=== PATIENT | female | born 1980 | race Caucasian/White ===

== ENCOUNTER → 2016-11-11 | Day surgery (SDC) | payer OTHER ==
[~2016-11-11] VITALS: Ht 157.5 cm; Wt 48.9 kg
[~2016-11-11] MED LIST: CLARITIN10 MG PO; DELTASONE5 MG PO; HUMALOG100 UNIT/1 SUB-Q; IMURAN50 MG PO; LINZESS145 MCG PO; PLAQUENIL200 MG PO; PROTONIX40 MG PO; ST. JOHN'S WOR300 M1 PO; VITAMIN D-32000 UNI1 PO; ZANTAC (NON-FO150 MG PO
[2016-11-11 11:05] LABS: BASOPHIL % 0.9 %; EOSINOPHIL % 0.6 %; HEMATOCRIT 30.7 % (33.0-46.0); HEMOGLOBIN 10.5 g/dL (11.0-15.0); IMMATURE GRANULOCYTE % 0.3 %; LYMPHOCYTE # 0.7 K/uL (0.8-4.0); LYMPHOCYTE % 20.5 %; MCH 34.1 pg (27.0-34.0); MCHC 34.2 gm/dL (32.0-36.5); MONOCYTE # 0.3 K/uL (0.0-1.0); MONOCYTE % 10.1 %; MPV 11.1 fl (9.4-12.4); NEUTROPHIL # (ANC) 2.1 K/uL (1.8-7.8); NEUTROPHIL % 67.6 %; NRBC % 0 /100WBC (0-0.00); RBC 3.08 M/uL (3.50-5.50); RDW-CV 15.9 % (11.9-14.6); WBC 3.2 K/uL (4.0-11.0)
[2016-11-11 11:06] LABS: MCV 99.7 fl (83.0-98.0); PLATELET COUNT 161 K/uL (150-450)
[2016-11-11 11:18] LABS: ALBUMIN 3.3 gm/dL (3.5-5.0); ALK PHOS 40 IU/L (33-138); ALT 32 IU/L (12-78); ANION GAP 10.8 (10.0-19.0); AST 27 IU/L (10-40); BLOOD UREA NITROGEN 10 mg/dL (6-24); CALCIUM 7.9 mg/dL (8.5-10.5); CHLORIDE 110 mMol/L (96-110); CO2 27 mMol/L (22-32); CREATININE 0.7 mg/dL (0.5-1.1); ESTIMATED GFR (MDRD EQUATION) > 60; POTASSIUM 3.8 mMol/L (3.7-5.1); SODIUM 144 mMol/L (135-145); TOTAL PROTEIN 6.3 g/dL (6.0-8.4)
[2016-11-11 11:22] LABS: TOTAL BILIRUBIN 0.9 mg/dL (0.0-1.5)
== END | disposition disaster alternative care site (69) ==
LOC: GPOC 11-02 14:00 → GEND 08:45
PROVIDERS: Registered Nurse
PROC: 0DB58ZX Excision of Esophagus, Via Natural or Artificial Opening Endoscopic, Diagnostic (ICD-10-PCS; principal; 2016-11-11)
PROC: 0DJD8ZZ Inspection of Lower Intestinal Tract, Via Natural or Artificial Opening Endoscopic (ICD-10-PCS; 2016-11-11)
DX: K22.10 Ulcer of esophagus without bleeding (principal); K44.9 Diaphragmatic hernia without obstruction or gangrene; K59.00 Constipation, unspecified; R19.4 Change in bowel habit; E10.9 Type 1 diabetes mellitus without complications; D64.9 Anemia, unspecified; Z88.0 Allergy status to penicillin; Z88.8 Allergy status to other drugs, medicaments and biological substances; Z79.899 Other long term (current) drug therapy
CPT/HCPCS: J1642; J2001; J7030

== ENCOUNTER → 2017-01-13 | Outpatient (CLI) | payer OTHER ==
[2017-01-13 19:58] LABS: HEMATOCRIT 33.5 % (33.0-46.0); HEMOGLOBIN 11.9 g/dL (11.0-15.0); MCH 36.2 pg (27.0-34.0); MCHC 35.5 gm/dL (32.0-36.5); MCV 101.8 fl (83.0-98.0); MPV 10.8 fl (9.4-12.4); PLATELET COUNT 192 K/uL (150-450); RBC 3.29 M/uL (3.50-5.50); RDW-CV 12.9 % (11.9-14.6)
[2017-01-13 20:17] LABS: ALBUMIN 3.8 gm/dL (3.5-5.0); ANION GAP 10.5 (10.0-19.0); CALCIUM 8.6 mg/dL (8.5-10.5); CREATININE 0.9 mg/dL (0.5-1.1); POTASSIUM 3.5 mMol/L (3.7-5.1); TOTAL PROTEIN 7.4 g/dL (6.0-8.4)
[2017-01-13 20:18] LABS: TOTAL BILIRUBIN 0.5 mg/dL (0.0-1.5)
[2017-01-13 20:24] LABS: ABSOLUTE NEUTROPHIL CT (ANC) 1.3 K/uL (1.8-7.8); LYMPHOCYTE # 0.6 K/uL (0.8-4.0); LYMPHOCYTE % 28 %; MONOCYTE # 0.1 K/uL (0.0-1.0); SEGMENTED NEUTROPHIL # 1.3 K/uL (1.8-7.8); SEGMENTED NEUTROPHIL % 64 %
== END | disposition disaster alternative care site (69) ==
LOC: GLAB 19:35
PROVIDERS: Internal Medicine Rheumatology
DX: M35.1 Other overlap syndromes (principal); Z79.52 Long term (current) use of systemic steroids; Z79.899 Other long term (current) drug therapy